=== PATIENT | female | born 1970 | race Two or more races ===

== ENCOUNTER → 2025-08-16 | Outpatient (CLI) | payer BC, SELFPAY ==
--- NOTE | 2025-08-16 08:00 | XR_ITS ---
Examination: CT abdomen and pelvis without contrast. Coronal 3-D reconstructions. Sagittal 2-D reconstructions. Date and time of exam: August 16, 2025, 0816 hours INDICATIONS: Right upper abdominal pain radiating to the left side beginning 7 months ago CTDI: vol (mGy): 7.76 DLP: (mGycm): 417 Technique: Axial images of the abdomen have been obtained, 3 mm slice thickness Intravenous contrast material has not been administered. Low dose protocols were performed. One or more of the following dose reduction techniques were used; automated exposure control, adjustment of the mA and/or KV according to patient size, use of iterative reconstruction technique. Findings: No focal liver or splenic lesions No gallstones No pancreatic or adrenal mass No renal or ureteral calculi, no hydronephrosis Aorta normal size No bowel obstruction Normal appendix No diverticulitis No pelvic mass Urinary bladder wall thickening up to 12 mm Moderate osteopenia IMPRESSION: No renal or ureteral calculi, no hydronephrosis Normal appendix Urinary bladder wall thickening up to 12 mm, consider cystitis
== END | disposition home or self-care (01) ==
PROVIDERS: PCP Registered Nurse; Referring Provider Registered Nurse; Visit Provider Registered Nurse
DX: N32.89 Other specified disorders of bladder (principal)
CPT/HCPCS: 74176

== ENCOUNTER → 2025-09-12 | Outpatient (CLI) | payer BC, SELFPAY ==
--- NOTE | 2025-09-12 14:00 | XR_ITS ---
Examination: Breast ultrasound, unilateral, right complete Date and time of exam: September 12, 2025, 1439 hours INDICATIONS: Mammogram October 08, 2024 focal asymmetry upper outer right breast Technique: Real-time douglas scale ultrasonographic imaging performed right breast including all 4 quadrants as well as nipple retroareolar and axillary region. Findings: 10:00 cyst 4 x 2 mm Retromalleolar nodule lobular margins 4 x 4 mm Retroareolar cyst 4 x 5 mm IMPRESSION: BI-RADS Category 3: Probably benign findings Recommend 1 additional 6-month right breast sonogram follow-up to document stability of retroareolar nodule described above
--- NOTE | 2025-09-12 14:30 | XR_ITS ---
Examination: Diagnostic digital mammography, unilateral, right Computer aided detection 3-D breast Tomosynthesis, unilateral Date and time of exam: 09/12/2025, 2:53 p.m. Comparisons: January 2020 through July 2024 Indications: 6-month follow-up of probably benign focal asymmetry Technique: Nonmagnified MLO, CC views of the right breast have been obtained, reconstructed from 3-D Tomosynthesis images. R2 computer aided detection program utilized for evaluation of suspicious masses and/or abnormal calcifications. 3-D Tomosynthesis images obtained. Technologist: Findings: The breasts are heterogeneously dense, which may obscure small masses. Focal asymmetry persists and appears unchanged and benign. evidence of abnormal masses or suspicious calcifications. Impression: BI-RADS category 2: Benign findings Recommend 1 year follow-up mammogram
== END | disposition home or self-care (01) ==
LOC: CDIM 14:24
PROVIDERS: PCP Family Medicine; Referring Provider Registered Nurse; Visit Provider Registered Nurse
DX: R92.321 Mammographic fibroglandular density, right breast (principal); N63.41 Unspecified lump in right breast, subareolar
CPT/HCPCS: 76641; 77061; 77065; G0279

== ENCOUNTER 2025-10-31 10:35 | Day surgery (SDC) | payer BC, SELFPAY ==
[2025-10-31] VITALS (8 sets, daily range): BP systolic 126–146; BP diastolic 61–88; PULSE 69–92; RESP 12–20; TEMP 36.1–36.3; O2SAT 95–100; BMI 25.0
--- NOTE | 2025-10-31 07:40 | EKG_ITS ---
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
[2025-10-31 10:42] LABS: Basophils # (Auto) 0.0 Thou/mm3 (0.0-0.2); Basophils % (Auto) 1 % (0-2.5); Eosinophils # (Auto) 0.2 Thou/mm3 (0.0-0.5); Eosinophils % (Auto) 3 % (0-10); Hematocrit 36.2 % (36.0-46.0); Hemoglobin 12.0 g/dL (12.0-16.0); Immature Granulocytes Auto 0.03 Thou/mm3 (0.00-0.00); Lymphocytes # (Auto) 1.5 Thou/mm3 (1.0-4.8); Lymphocytes % (Auto) 28 % (10-50); Mean Corpuscular HGB Conc 33.1 g/dl (31.0-37.0); Mean Corpuscular Hemoglobin 28.8 pg (25.0-35.0); Mean Corpuscular Volume 87 fL (80-100); Monocytes # (Auto) 0.5 Thou/mm3 (0.0-0.8); Monocytes % (Auto) 9 % (0-12); Neutrophils # (Auto) 3.1 Thou/mm3 (1.8-7.7); Neutrophils % (Auto) 58 % (37-80); Nucleated Red Blood Cell # 0.00 Thou/mm3 (0.00-0.00); Nucleated Red Blood Cell % 0 /100 WBC (0); Platelet Count 342 Thou/mm3 (140-440); RDW Standard Deviation 41.1 fL (36.4-46.3); Red Blood Count 4.17 Miln/mm3 (4.00-5.20); White Blood Count 5.4 Thou/mm3 (3.6-11.0)
[2025-10-31 10:48] LABS: Alanine Aminotransferase 23 U/L (10-49); Albumin, Serum 4.4 gm/dL (3.5-5.0); Albumin/Globulin Ratio 1.6 (1.2-2.2); Alkaline Phosphatase 74 U/L (46-116); Anion Gap 8 (7-16); Aspartate Amino Transferase 22 U/L (0-34); BUN/Creatinine Ratio 20 Ratio (12-20); Bilirubin,Total 0.4 mg/dL (0.3-1.2); Blood Urea Nitrogen 16 mg/dL (9-23); Calcium 9.0 mg/dL (8.3-10.6); Calcium (Corrected) 9.0 mg/dL (8.5-10.1); Carbon Dioxide 29.5 mMol/L (20.0-31.0); Chloride 106 mMol/L (98-107); Creatinine (Component) 0.8 mg/dL (0.6-1.3); Estimated Creatinine Clearance 73.2 mL/min (>60); Globulin 2.7 gm/dL (2.3-3.5); Glucose 119 mg/dL (74-106); INR 1.0 (0.9-1.3); Osmolality,Calculated 287 (275-295); Partial Thromboplastin Time 27.2 Seconds (22.0-36.0); Potassium 4.4 mMol/L (3.4-5.1); Prothrombin Time 10.8 Seconds (9.0-12.2); Sodium 143 mMol/L (136-145); Total Protein 7.1 gm/dL (5.7-8.2); eGFR > 60 See Note
--- NOTE | 2025-10-31 14:15 | SUR.PHASEI ---
pt received from OR in recovery bay 3. pt asleep but responds to voice, breathing unlabored on room air. v/s stable. pt dressing to lower back cdi. report received from Vale Apple and Dr. Toro.
--- NOTE | 2025-10-31 14:25 | PD.SUROPNT ---
Date of Procedure 10/31/25 Pre Op Diagnosis Infected sebaceous cyst of the low back Post Op Diagnosis Same Procedure Incision and drainage of the infected sebaceous cyst and removal of the sebaceous cyst Findings Patient was found to have large abscess in the lower back in the midline as a result of an infected sebaceous cyst. The cyst wall was not completely dissected out Procedure Description After the patient was brought to the operating room endotracheal Ancef was given. She was kept in prone position. Her lower abdomen was prepped with ChloraPrep solution and draped in a sterile manner. Patient received 1 g of Ancef because of the infection. Timeout was performed. Elevated transverse incision and immediately thick purulent material came into view. This was cultured and I compressed the surrounding tissues to deliver the all infected purulent material. Then using Raghavendra retractors I dissected out the subcutaneous tissue all the way down to the fascia and removed as much sebaceous cyst as possible. It was not completely removed because of the perforation of the cyst with the coronado firmly adherent to the skin. Some of the bleeding points were suture-ligated with a 2-0 chromic and the wound was packed with quarter inch iodoform gauze and 4 x 4 dressing was applied. Patient tolerated the procedure well. Anesthesia GETA Pathology / specimen None Estimated Blood Loss 50 Surgeon Renata Escamilla MD Surgical Staff Operation Date: 11/01/25 09:45 <No data on this case meets the specified criteria>
[2025-10-31] MEDS: fentaNYL CIT INJ 50 mCg/ML AMP 2ML IVP (14:56)
[2025-10-31] MEDS: ACETAMINOPHEN INJ 1,000 MG/100 ML VIAL 1000 MG IV (14:58)
--- NOTE | 2025-10-31 15:26 | SUR.PHASEII ---
pt able to tolerate oral fluids without difficulty swallowing or nausea/vomiting.
--- NOTE | 2025-10-31 15:50 | SUR.PHASEII ---
pt awake and alert, breathing unlabored on room air. v/s stable. pt dressing to lower back cdi. pt able to ambulate to wheelchair to steady gait. d/c instructions given with daughter in [place] in room, all questions answered. pt d/c via wheelchair with steady gait.
== END 2025-10-31 15:50 | disposition home or self-care (01) ==
PROVIDERS: PCP Family Medicine; Referring Provider Surgery; Visit Provider Surgery
PROC: (CPT 10060; principal; 2025-10-31 13:00)
DX: L02.212 Cutaneous abscess of back [any part, except buttock and flank] (principal); L72.3 Sebaceous cyst; Z01.810 Encounter for preprocedural cardiovascular examination; E11.9 Type 2 diabetes mellitus without complications; Z79.4 Long term (current) use of insulin
CPT/HCPCS: 10060; 36415; 80053; 85025; 85610; 85730; 87070; 87075; 87076; 87205; 93005; A4217; A4649; J0131; J0330; J0690; J1100; J2704; J2765; J3010; J3490